=== PATIENT | female | born 1955 | race Caucasian/White ===

== ENCOUNTER 2022-07-17 08:26 | Emergency (ER) | payer MEDICARE, OTHER, SELFPAY ==
[2022-07-17 08:35] VITALS: BP 141/56; PULSE 65; RESP 16; TEMP 36.4; O2SAT 100
--- NOTE | 2022-07-17 08:39 | ED.EAR ---
HPI - Ear Problem General Chief complaint: Ear Stated complaint: rt ear pain, headache Time Seen by Provider: 07/17/22 08:39 Source: patient and RN notes reviewed Mode of arrival: ambulatory Limitations: no limitations History of Present Illness HPI Narrative: 67 y/o female with chronic tinnitus presented for c/o bilateral ear pain and headache. States right ear pain is worse than left. She endorses tinnitus is also worse than normal. She rates tinnitus 10/10. She rates the pain to the right side of her face 7.5/10. The face pain is described as achy and constant, causing the right eye to 'shrink.' Denies vision changes, photophobia, nausea, dizziness,, numbness, tingling or weakness of extremities/face, fever or chills. She endorses at the onset she felt sinus pressure in her forehead for about 1 week, stating she thinks the weather has caused the pressure. She has taken Tylenol for pain. Endorses tinnitus started in 2007 during stress, and has remained constant since then. She takes Ativan and Ambien to help her sleep due to the rain. Related Data Home Medications Medication Instructions Recorded Confirmed lorazepam 0.5 mg tablet (Ativan) 0.5 mg PO TID PRN Anxiety 10/08/19 07/17/22 zolpidem 10 mg tablet 10 mg PO DAILY 10/08/19 07/17/22 cholecalciferol (vitamin D3) 25 25 mcg PO BID 12/10/21 07/17/22 mcg (1,000 unit) capsule Allergies Allergy/AdvReac Type Severity Reaction Status Date / Time No Known Allergies Allergy Verified 07/17/22 08:36 Review of Systems Review of Systems: CONSTITUTIONAL: Denies body aches, fever, chills, or sweats. EYES: Denies visual changes, redness, or discharge. ENT: Denies rhinorrhea, congestion, sore throat CARDIOVASCULAR: Denies chest pain, palpitations, or edema. RESPIRATORY: Denies cough or dyspnea. GASTROINTESTINAL: Denies abdominal pain, nausea, vomiting, or diarrhea. SKIN: Denies rash, itching, or wounds. MUSCULOSKELETAL: Denies back pain, joint pain, or myalgia. NEUROLOGIC: Endorses headache, denies numbness, tingling, weakness, dizziness All systems reviewed & are unremarkable except as noted in HPI and below PMFSH Past Medical History Medical History External hemorrhoid, thrombosed Hepatitis C antibody test negative 10/10/17 History of anal fissures Surgical History Surgical History H/O: hysterectomy 12/28/2018 History of appendectomy 1972 History of delivery 1985 History of tubal ligation 1985 Hx of laparoscopy 1983 Family History Family History Mother Patient's mother is , Onset Age: 55 Carcinoma of colon Father Patient's father is , Onset Age: 54 Diabetes mellitus Hypertension Family history of elevated blood lipids Family history of cardiovascular disease Acute myocardial infarction Family history of coronary artery disease Sibling Diabetes mellitus Family history of alcoholism Grandparent Diabetes mellitus Social History Social History Smoking status: Never smoker Alcohol intake: never Substance use: never Lack of Transportation: No Lack of Food: Never True Current Housing: I Have Housing Concerned About Future Housing: No Difficulty Paying Gas/Electric Bills: No Difficulty Paying for Meds: No Currently Unemployed: No Education: High School Diploma/GED Difficulty w/ Childcare or Family Care: No Comments At time of signature, I have reviewed and agree with nursing past medical, surgical, social and family history unless otherwise noted. Please see nursing chart for further information. There is no relevant family history pertinent to the presenting complaint Exam Narrative: GENERAL: Well-appearing HEAD: Normocephalic, atraumatic. EYES: PER
== END 2022-07-17 09:06 | disposition home or self-care (01) ==
PROVIDERS: Emergency Provider Nurse Practitioner Family; PCP Family Medicine
DX: H93.19 Tinnitus, unspecified ear (principal); G50.0 Trigeminal neuralgia
CPT/HCPCS: 99213; G0463

== ENCOUNTER 2022-07-21 11:53 | Observation (INO) | payer MEDICARE, OTHER, SELFPAY ==
[2022-07-21] VITALS (10 sets, daily range): BP systolic 105–161; BP diastolic 41–86; PULSE 55–84; RESP 14–18; TEMP 36.2–36.7; O2SAT 96–100; BMI 21.0
--- NOTE | ~2022-07-21 | US_ITS ---
EXAMINATION: US carotid duplex BI DATE: 07/22/2022 16:14 INDICATION: Syncope TECHNIQUE: Grayscale, color Doppler, and pulsed Doppler images of the cervical carotid arteries were obtained. The degree of vessel stenosis is placed in one of the following categories: normal, <50%, 5 0-69%, >=70% but less than near-occlusion, near-occlusion, or total occlusion. Note that percent sten osis relative to normal distal artery lumen diameter is indirectly measured from velocity measurement s as described by Jitendra, et al. Radiology 2003; 229:340-346. COMPARISON: None. FINDINGS: RIGHT: The right common carotid artery (CCA) peak systolic velocity (PSV) is 79 cm/s. The right internal car otid artery (ICA) PSV is 102 cm/s. The right ICA end-diastolic velocity (EDV) is 26 cm/s. The right I CA/CCA PSV ratio is 1.3. Grayscale and color Doppler images demonstrate no evident stenosis or plaque in the ICA. The external carotid artery (ECA) PSV is 140 cm/s. There is antegrade flow in the right vertebral artery. LEFT: The left CCA PSV is 70 cm/s. The left ICA PSV is 103 cm/s. The left ICA EDV is 32 cm/s. The left ICA/ CCA PSV ratio is 1.5. Grayscale and color Doppler images yield an estimate of <50% diameter reduction from minimal plaque in the ICA. The ECA PSV is 100 cm/s. There is antegrade flow in the left vertebr al artery. IMPRESSION: 1. No evident plaque or stenosis in the right internal carotid artery. 2. <50% stenosis from minimal plaque in the left internal carotid artery. Reviewed, dictated and finalized at location A. END ARCHITECT
--- NOTE | ~2022-07-21 | CT_ITS ---
EXAMINATION: CT brain wo con INDICATION: Headache and right eye droop COMPARISON: 03/03/2017 TECHNIQUE: Standard unenhanced head CT. The dose-length product (DLP) was 605.33 mGy-cm. The mA was a djusted according to patient size. Iterative reconstruction technique was employed. FINDINGS: There is no acute intraparenchymal hemorrhage. No evidence of mass lesion. No evidence of a cute infarction. There is mild periventricular and subcortical hypodensity probably related to small vessel ischemic disease. There is mild prominence of the sulci and ventricles related to cerebral atr ophy. Intracranial calcified cerebral atherosclerosis is noted. There are no extra-axial collections. There is no mass effect or midline shift. The orbits and soft tissues are unremarkable. The visualiz ed sinuses and mastoid air cells are well aerated. IMPRESSION: 1. No acute intracranial abnormality. 2. Age related findings. Reviewed, dictated and finalized at location A. STED LIVING EXECUTIVE DIRECTOR
--- NOTE | ~2022-07-21 | XR_ITS ---
EXAMINATION: XR chest 2V DATE: 07/21/2022 16:18 INDICATION: Hypertension, syncopal episode and 2 weeks of headache TECHNIQUE: PA and lateral views of the chest were obtained. COMPARISON: Chest radiograph dated 03/19/2010 FINDINGS: Mild linear discoid atelectasis at the right upper lung zone. Small calcified nodules at the lateral left midlung zone consistent with old granulomatous disease. No other airspace opacities, pulmonary e marisela, pleural effusion or pneumothorax. The cardiomediastinal silhouette is normal. Visualized bones and soft tissues are unremarkable. IMPRESSION: 1. Mild discoid atelectasis in the right upper lung zone. No other acute cardiopulmonary disease. Reviewed, dictated and finalized at location A. ESSOR OF ARCHAEOLOGY IMPRESSION: 1. Mild discoid atelectasis in the right upper lung zone. No other acute cardio pulmonary disease.
--- NOTE | ~2022-07-21 | MR_ITS ---
EXAMINATION: MR brain/brain stem wo con DATE: 07/22/2022 12:36 INDICATION: Headache. TECHNIQUE: Magnetic resonance imaging (MRI) of the brain and brainstem was performed without intraven ous contrast. COMPARISON: Brain MRI 03/15/2017, head CT 07/21/2022 FINDINGS: There are scattered areas of nonspecific increased T2-weighted signal intensity in the cere bral white matter. There is no intracranial hemorrhage, acute infarction, or abnormal intracranial ma ss lesion. The ventricles are normal in size. The mastoid air cells are normal. The orbits are normal . The paranasal sinuses are clear. IMPRESSION: 1. Stable mild nonspecific cerebral white matter disease, which likely represents chronic small vesse l ischemic disease. Reviewed, dictated and finalized at location A. SAWMILL OPERATOR IMPRESSION: 1. Stable mild nonspecific cerebral white matter disease, which likely represen ts chronic small vessel ischemic disease.
[2022-07-21] MEDS: LORazepam INJ (*CRX) 2 MG/ML VIAL 1 MG IV PUSH (14:57)
[2022-07-21] MEDS: hydrALAZINE HCL 20 MG/ML VIAL 10 MG IV PUSH (14:58)
[2022-07-21 15:08] LABS: Basophils Absolute Auto 0.1 K/mm3 (0.0-0.1); Basophils Percent Auto 0.6 % (0.2-1.2); Eosinophils Absolute Auto 0.1 K/mm3 (0-0.3); Eosinophils Percent Auto 0.7 % (0-4.4); Hematocrit 42.7 % (37.0-47.0); Immature Granulocyte Absolute 0.03 K/mm3 (0.00-0.031); Immature Granulocyte Percent A 0.3 % (0-0.5); Lymphocytes Absolute Auto 3.48 K/mm3 (0.9-3.2); Mean Corpuscular HGB Conc 32.8 g/dl (32-36); Mean Corpuscular Hemoglobin 31.3 pg (26-34); Mean Corpuscular Volume 95.3 fl (80-100); Mean Platelet Volume 10.2 fl (7.4-10.4); Monocytes Absolute Auto 0.7 K/mm3 (0.1-0.6); Monocytes Percent Auto 6.7 % (2.6-8.5); Neutrophils Absolute Auto 5.4 K/mm3 (1.3-6.7); Neutrophils Percent Auto 55.7 % (45.5-73.1); Platelet Count Result 223 k/mm3 (150-375); Red Blood Count 4.48 M/mm3 (4.2-5.4); Red Cell Distribution Width 13.1 % (11.5-14.5); White Blood Count 9.7 K/mm3 (4.5-10.0)
[2022-07-21 15:21] LABS: Alanine Aminotransferase 17 U/L (6-35); Albumin Level 4.7 g/dL (3.5-5.1); Alkaline Phosphatase 68 U/L (38-126); Anion Gap 4 mmol/L (8-16); Aspartate Amino Transferase 27 U/L (14-36); Bilirubin,Total 0.6 mg/dL (0.2-1.3); Blood Urea Nitrogen 18 mg/dL (7-17); Carbon Dioxide 32 mmol/L (22-30); Chloride 101 mmol/L (98-107); Estimated CRCL calculation 43 ml/min; Estimated Glomerular Filt Rate > 60; Glucose 95 mg/dL (65-110); Potassium 3.9 mmol/L (3.4-5.0); Sodium 137 mmol/L (137-145)
--- NOTE | 2022-07-21 15:21 | ED.HA ---
HPI - Headache General Chief Complaint: Headache Stated Complaint: headache, HTN, eye droop since July 07 Time Seen by Provider: 07/21/22 13:48 History of Present Illness HPI Narrative: 67-year-old female with a history of trigeminal neuralgia, tinnitus, hypothyroidism presents emergency room for evaluation of a headache has been present for 2 weeks. Patient states the headache is located behind the right eye and describes it as a squeezing sensation. Headache radiates into the right temporal area. Headache is phonophobic. Denies any associated nausea or vomiting. States that headache has exacerbated her tinnitus, for which she takes Ativan for. Denies any known injury injury or trauma. Patient was seen at her primary care office earlier today and was found to have a blood pressure of 180/60. Patient also endorses drooping of her upper eyelid. Denies any focal neuro deficits. Denies fevers. Related Data Home Medications Medication Instructions Recorded Confirmed lorazepam 0.5 mg tablet (Ativan) 0.5 mg PO TID PRN Anxiety 10/08/19 07/17/22 zolpidem 10 mg tablet 10 mg PO DAILY 10/08/19 07/17/22 cholecalciferol (vitamin D3) 25 25 mcg PO BID 12/10/21 07/17/22 mcg (1,000 unit) capsule Allergies Allergy/AdvReac Type Severity Reaction Status Date / Time No Known Allergies Allergy Verified 07/21/22 11:54 Review of Systems Review of Systems: CONSTITUTIONAL: Denies fever, chills, or sweats. EYES: Denies visual changes, redness, or discharge. ENT: Denies rhinorrhea, congestion, sore throat, or otalgia. CARDIOVASCULAR: Denies chest pain, palpitations, or edema. RESPIRATORY: Denies cough or dyspnea. GASTROINTESTINAL: Denies abdominal pain, nausea, vomiting, or diarrhea. GENITOURINARY: Denies dysuria or hematuria. SKIN: Denies rash or itching. MUSCULOSKELETAL: Denies back pain, joint pain, or myalgia. NEUROLOGIC: Reports headache PSYCHIATRIC: Denies anxiety or depression. [facility] Past Medical History Medical History External hemorrhoid, thrombosed Hepatitis C antibody test negative 10/10/17 History of anal fissures Surgical History Surgical History H/O: hysterectomy 12/28/2018 History of appendectomy 1972 History of delivery 1985 History of tubal ligation 1985 Hx of laparoscopy 1983 Family History Family History Mother Patient's mother is , Onset Age: 55 Carcinoma of colon Father Patient's father is , Onset Age: 54 Diabetes mellitus Hypertension Family history of elevated blood lipids Family history of cardiovascular disease Acute myocardial infarction Family history of coronary artery disease Sibling Diabetes mellitus Family history of alcoholism Grandparent Diabetes mellitus Social History Social History Smoking status: Never smoker Alcohol intake: never Substance use: never Lack of Transportation: No Lack of Food: Never True Current Housing: I Have Housing Concerned About Future Housing: No Difficulty Paying Gas/Electric Bills: No Difficulty Paying for Meds: No Currently Unemployed: No Education: High School Diploma/GED Difficulty w/ Childcare or Family Care: No Exam Narrative: GENERAL: Well-appearing, well-nourished, no physical limitations, and in no acute distress. HEAD: Normocephalic, atraumatic. EYES: Conjunctivae normal, PERRLA and EOMI. Ptosis to left eye ENT: External nose normal, Nares clear, no rhinorrhea or epistaxis. Mucous membranes moist. Oropharynx without tonsillar hypertrophy exudate or other lesions. External ears normal, bilateral TMs normal bilaterally CHEST: Clear to auscultation. No respiratory distress. No wheezes rales or rhonchi. HEART: Regular rate and rhythm. No murmur heard.
[2022-07-21 15:54] LABS: Erythrocyte Sedimentation Rate 8 mm/hr (0-20)
--- NOTE | 2022-07-21 16:01 | ECG_ITS ---
Measurements Intervals Jet Rate: 68 P: -11 MO: 128 QRS: -42 QRSD: 88 T: 61 QT: 415 QTc: 444 Interpretive Statements SINUS RHYTHM MARKED LEFT AXIS DEVIATION [QRS AXIS < -30] POSSIBLE OLD ANTEROSEPTAL MYOCARDIAL INFARCTION , OF INDETERMINATE AGE [40+ ms Q WAVE IN V1-V4] COMPARED TO ECG 12/25/2018 13:46:05 THE RATE IS FASTER Electronically Signed On 07-21-2022 20:05:29 COLLABORATIVE PHYSICIAN by Susan Juarez M.D.
[2022-07-21] MEDS: SODIUM CHLORIDE 0.9% IV 1,000 ML 999 ML IV CONT (16:45)
[2022-07-21] MEDS: KETOROLAC 30 MG/ML VIAL (*BKC) IV PUSH (16:46)
[2022-07-21] MEDS: methylPREDNISolone SOD SUCC 125 MG VIAL IV PUSH (16:46)
[2022-07-21] MEDS: diphenhydrAMINE HCl INJ 50 MG/ML VIAL 25 MG IV PUSH (16:46)
[2022-07-21] MEDS: METOCLOPRAMIDE HCL INJ 10 MG/2 ML VIAL IV PUSH (16:47)
[2022-07-21 17:41] LABS: Influenza A QL RT-PCR Negative (Negative); Influenza B QL RT-PCR Negative (Negative); SARS-CoV-2 RNA PCR Negative
--- NOTE | 2022-07-21 21:35 | ADMGEN ---
This patient, Los Hayes, was admitted to [facility] Surg Room 317-02. Patient/family oriented to hospital policies and general routines including ID bracelet, bed and alarms, visiting hours, pain management, procedures, bathroom and other care routines, personal items, smoking policy, room service/diet, and visiting hours. Information on how to activate the Rapid Response Team has been discussed. Patient/Family are encouraged to report perceived risks to care and to ask questions if they do not understand what they are told or what they should do.
[2022-07-21] MEDS: ZOLPIDEM TARTRATE (*CRX) 5 MG TABLET 10 MG PO (23:21)
[2022-07-21] MEDS: LORazepam (*CRX) 0.5 MG TABLET PO (23:21)
[2022-07-21] MEDS: SIMVASTATIN 5 MG TABLET PO (23:22)
--- NOTE | 2022-07-21 23:22 | PM.IMHP ---
H&P: HPI History of Present Illness Date/Time: 07/21/22 23:22 Chief Complaint: headache Narrative: This is a 67-year-old female with past medical history significant for hypothyroidism, patient presented to the emergency room due to headache she was found to have abnormal a high blood pressure she had been in to see her primary care physician and instructed to come to the emergency room. patient received a dose of hydralazine and had syncopal episode. At the time of my visit patient stated that her headache was a lot better was feeling some pressure but nothing like it was before, denied any vision changes, no nausea, no vomiting, no focal sensorimotor deficit, no fevers, no rigors, no cough, no sputum production. preliminary workup was significant for: head CT IMPRESSION: 1. No acute intracranial abnormality. 2. Age related findings. chest x-ray IMPRESSION: 1. Mild discoid atelectasis in the right upper lung zone. No other acute cardiopulmonary disease Review of Systems Review of Systems: headache Constitutional: Constitutional: Denies chills, Denies fatigue, Denies fever(s), Denies malaise, Denies night sweats, Denies poor appetite and Denies weakness Eyes: Eyes: Denies change in vision ENT: Denies dysphagia, Denies vertigo and Denies dizziness Cardiovascular: Cardiovascular: Denies chest pain, Denies leg edema, Denies lightheadedness and Denies palpitations Respiratory: Respiratory: Denies chest congestion, Denies cough and Denies excessive phlegm production Gastrointestinal: Gastrointestinal: Denies abdominal pain, Denies dyspepsia, Denies heartburn, Denies nausea and Denies vomiting Genitourinary: Genitourinary: Denies dysuria Musculoskeletal: Musculoskeletal: Denies myalgias and Denies joint swelling Integumentary/Breasts: Skin/Breast: Denies rash Neurologic: Denies vertigo, Denies dizziness, Denies focal weakness and Denies Sensory deficit (Neuro) Psychiatric: Psychiatric: Reports no additional psychiatric complaints and Reports as per HPI Endocrine: Endocrine: Denies cold intolerance, Denies flushing, Denies heat intolerance, Denies polyphagia, Denies polydipsia and Denies palpitations Hematologic/Lymphatic: Hematologic/Lymphatic: Reports no additional hematologic/lymphatic complaints and Reports as per HPI Allergic/Immunologic: Allergic/Immunologic: Reports no additional allergic/immunologic complaints and Reports as per HPI [facility] Past Medical History Medical History External hemorrhoid, thrombosed Hepatitis C antibody test negative 10/10/17 History of anal fissures Surgical History Surgical History H/O: hysterectomy 12/28/2018 History of appendectomy 1972 History of delivery 1985 History of tubal ligation 1984 Hx of laparoscopy 1983 Family History Family History Mother Patient's mother is , Onset Age: 55 Carcinoma of colon Father Patient's father is , Onset Age: 54 Diabetes mellitus Hypertension Family history of elevated blood lipids Family history of cardiovascular disease Acute myocardial infarction Family history of coronary artery disease Sibling Diabetes mellitus Family history of alcoholism Grandparent Diabetes mellitus Social History Social History Smoking status: Never smoker Alcohol intake: never Substance use: never Lack of Transportation: No Lack of Food: Never True Current Housing: I Have Housing Concerned About Future Housing: No Difficulty Paying Gas/Electric Bills: No Difficulty Paying for Meds: No Currently Unemployed: No Education: High School Diploma/GED Difficulty w/ Childcare or Family Care: No Spiritual care concerns: No Meds Home Medications and Allergies
[2022-07-22] MEDS: LEVOTHYROXINE SODIUM 88 MCG TABLET PO (05:55)
[2022-07-22] MEDS: methylPREDNISolone 4 MG TABLET PO ×2 (05:55→20:52)
[2022-07-22 06:00] VITALS: BP 116/50; PULSE 63; RESP 18; TEMP 36.3; O2SAT 97
[2022-07-22 08:00] VITALS: BP 134/60; PULSE 61; RESP 20; TEMP 36.5; O2SAT 99
[2022-07-22] MEDS: LORazepam (*CRX) 0.5 MG TABLET PO (09:27)
[2022-07-22] MEDS: ACETAMINOPHEN 325 MG TABLET 650 MG PO (09:52)
[2022-07-22] MEDS: KETOROLAC 30 MG/ML VIAL (*BKC) IV PUSH (13:18)
[2022-07-22 14:00] VITALS: BP 142/54; PULSE 63; RESP 20; TEMP 36.5; O2SAT 99
--- NOTE | 2022-07-22 14:02 | PM.IMPN ---
Progress Note: A&P Assessment and Plan (1) Uncontrolled hypertension: Code(s): I10 - Essential (primary) hypertension Status: Acute Assessment and Plan: resume home meds (2) Headache: Code(s): R51.9 - Headache, unspecified Status: Acute Assessment and Plan: CT of the head with no acute abnormalities resolved follow-up in the outpatient setting Subjective Date/time seen: 07/22/22 14:02 Patient was seen during the morning rounds today. Patient headache is slightly better. No shortness of breaths chest pain. Mood stable. Review of Systems Constitutional: Constitutional: Denies chills, Denies fatigue, Denies fever(s), Denies malaise, Denies night sweats, Denies poor appetite and Denies weakness Eyes: Eyes: Denies change in vision ENT: Denies dysphagia, Denies vertigo and Denies dizziness Cardiovascular: Cardiovascular: Denies chest pain, Denies leg edema, Denies lightheadedness and Denies palpitations Respiratory: Respiratory: Denies chest congestion, Denies cough and Denies excessive phlegm production Gastrointestinal: Gastrointestinal: Denies abdominal pain, Denies dysphagia, Denies dyspepsia, Denies heartburn, Denies nausea and Denies vomiting Genitourinary: Genitourinary: Denies dysuria Musculoskeletal: Musculoskeletal: Denies myalgias and Denies joint swelling Integumentary/Breasts: Skin/Breast: Denies rash Neurologic: Denies vertigo, Denies dizziness, Denies focal weakness, Denies Sensory deficit (Neuro) and Denies weakness Psychiatric: Psychiatric: Reports no additional psychiatric complaints and Reports as per HPI Endocrine: Endocrine: Denies cold intolerance, Denies fatigue, Denies flushing, Denies heat intolerance, Denies polyphagia, Denies polydipsia and Denies palpitations Hematologic/Lymphatic: Hematologic/Lymphatic: Reports no additional hematologic/lymphatic complaints and Reports as per HPI Allergic/Immunologic: Allergic/Immunologic: Reports no additional allergic/immunologic complaints and Reports as per HPI Exam Narrative: patient laying in bed Const: General: comfortable, no acute distress, well developed, alert, awake and average body habitus Nutritional Appearance: average body habitus Orientation/consciousness: patient oriented x3 HENMT: Head: normal to inspection, normocephalic and atraumatic Ears: hearing grossly normal bilaterally Face/Nose/Sinus: normal facial exam Face and sinus: normal facial exam Eyes: General: appearance normal, both eyes and all related structures Pupils: Equal, round and reactive pupils present EOM: EOMs intact bilaterally Neck: Neck: full ROM, no lymphadenopathy and no JVD Thyroid: thyroid normal Lymphatic: no lymphadenopathy noted Resp: Effort & Inspection: normal respiratory effort and able to speak in complete sentences Auscultation: clear to auscultation bilaterally Cardio: Jugular venous distension: no JVD Rate: regular rate Rhythm: regular rhythm Heart sounds: S1 normal heart sound present and S2 normal heart sound present : General: Yes deferred Skin: Rashes: no rashes Wounds: no wounds Neuro: General: patient oriented x3 and CN's II-XI intact bilaterally Cranial nerves: Yes CN's II-XII intact bilaterally and Yes Equal, round and reactive pupils present Cognition (Neuro): normal cognition Speech: normal speech Gait exam (Neuro): Normal gait present Motor exam (neuro): 5/5 motor strength present throughout Sensory Exam: No Sensory deficit (Neuro) Extrem: General: normal to inspection, full ROM, no joint enlargement and no pedal edema Objective Data Vital Signs Vital Signs: Vital Signs - 24 hr 07/21/22 16:30 07/21/22 18:12 07/21/22 18:47 Temperature Pulse Rate 68 74 Respiratory Rate 18 16 Blood Pressure 105/71 122/84 108/41 L Pulse Oximetry 98 99 100 Oxygen Delivery 07/21/22 18:48 07/21/22 19:00 07/21/22 19:15 Temperature Pulse Rate 58 L 80 Respiratory R
--- NOTE | 2022-07-22 15:01 | WPDNEURCNPN ---
Assessment and Plan Assessment and plan (1) Uncontrolled hypertension: Code(s): I10 - Essential (primary) hypertension Status: Acute (2) Headache: Code(s): R51.9 - Headache, unspecified Status: Acute Plan 1 hypertension 2 nonspecific headache 3 syncopal episode plan is to evaluate completely before discharge MRI has been done Consult date: 07/22/22 HPI: Los Hayes is a 67 year old female admitted to the hospital for the complaints of headaches in addition to the history of 1. Trigeminal neuralgia 2. Hypothyroidism she complained of headache mainly located behind the right eye with squeezing sensation radiating to the right latter day area she also complained of tinnitus in the right ear on initial evaluation by the family physician in his office she was found to have blood pressure 180/60 but she also complained of slight ptosis of the right eye. He had been taking lorazepam 0.5 mg 3 times a day for ongoing anxiety, in the past she has history of never smoking never drinking alcohol and normal examination in the emergency room with normal vital signs except the blood pressure 161/52 on room air her routine lab in the emergency room revealed normal CBC and other lab also MRI of the brain done today revealed no evidence of space-occupying lesion or any acute territorial stroke PMFSH Past Medical History Medical History External hemorrhoid, thrombosed Hepatitis C antibody test negative 10/10/17 History of anal fissures Surgical History Surgical History H/O: hysterectomy 12/28/2018 History of appendectomy 1972 History of delivery 1985 History of tubal ligation 1985 Hx of laparoscopy 1983 Family History Family History Mother Patient's mother is , Onset Age: 55 Carcinoma of colon Father Patient's father is , Onset Age: 54 Diabetes mellitus Hypertension Family history of elevated blood lipids Family history of cardiovascular disease Acute myocardial infarction Family history of coronary artery disease Sibling Diabetes mellitus Family history of alcoholism Grandparent Diabetes mellitus Social History Social History Smoking status: Never smoker Alcohol intake: never Substance use: never Lack of Transportation: No Lack of Food: Never True Current Housing: I Have Housing Concerned About Future Housing: No Difficulty Paying Gas/Electric Bills: No Difficulty Paying for Meds: No Currently Unemployed: No Education: High School Diploma/GED Difficulty w/ Childcare or Family Care: No Spiritual care concerns: No Meds Home Medications and Allergies Home Medications Medication Instructions Recorded Confirmed Type lorazepam 0.5 mg tablet (Ativan) 0.5 mg PO TID PRN Tinnitis 10/08/19 07/21/22 History zolpidem 10 mg tablet 10 mg PO HS 10/08/19 07/21/22 History cholecalciferol (vitamin D3) 25 25 mcg PO 4XW 12/10/21 07/21/22 History mcg (1,000 unit) capsule levothyroxine 88 mcg tablet 88 mcg PO DAILY #90 tabs 06/13/22 07/21/22 Rx (Synthroid) methylprednisolone 4 mg tablets in See Rx Instructions PO .COMPLEX 07/17/22 07/21/22 Rx a dose pack (Medrol (Randolph)) #21 ea simvastatin 5 mg tablet 5 mg PO HS 07/21/22 07/21/22 History Allergies Allergy/AdvReac Type Severity Reaction Status Date / Time No Known Allergies Allergy Verified 07/21/22 11:54 Vital Signs Vital Signs - 24 hr 07/21/22 16:30 07/21/22 18:12 07/21/22 18:47 Temperature Pulse Rate 68 74 Respiratory Rate 18 16 Blood Pressure 105/71 122/84 108/41 L Pulse Oximetry 98 99 100 Oxygen Delivery 07/21/22 18:48 07/21/22 19:00 07/21/22 19:15 Temperature Pulse Rate 58 L 80 Respiratory Rate 16 16 Blood Pressure 136/84 142/86 H Pulse Oximet
[2022-07-22 16:00] VITALS: BP 142/54; PULSE 63; RESP 20; TEMP 36.5; O2SAT 99
[2022-07-22] MEDS: LORazepam (*CRX) 1 MG TABLET PO (17:57)
[2022-07-22 20:00] VITALS: BP 122/54; PULSE 57; RESP 18; TEMP 36.2; O2SAT 96
[2022-07-22] MEDS: SIMVASTATIN 5 MG TABLET PO (20:52)
[2022-07-22] MEDS: ZOLPIDEM TARTRATE (*CRX) 5 MG TABLET 10 MG PO (20:52)
[2022-07-23] VITALS: BP 156/61; PULSE 61; RESP 20; TEMP 36.2; O2SAT 100
--- NOTE | 2022-07-23 | ECHO_ITS ---
Patient Info Name: Los Hayes Age: 67 years : 1955 Gender: Female Ht: 63 in Wt: 118 lbs BSA: 1.54 m2 HR: 63 bpm BP: 155 / 59 mmHg Technical Quality: Good Exam Date: 07/23/2022 9:01 AM Exam Location: [facility] Patient Status: Outpatient Admit Date: 07/21/2022 Staff Ordering Physician: Tim Smalls MD Bridge Attacher: Christian Momin RDCS Attending Provider: Monse Remy PA-C Exam Type: CA echo doppler color flow Study Info Indications R55 - Syncope and collapse Complete two-dimensional, color flow and Doppler transthoracic echocardiogram is performed. Summary 1. Complete two-dimensional, color flow and Doppler transthoracic echocardiogram is performed. 2. Left ventricular chamber dimension is normal. 3. Left ventricular systolic function is normal, estimated at 55-60%. 4. The left ventricular diastolic function is grade III diastolic dysfunction. 5. E/e' 10 is mildly elevated. 6. Left atrial chamber dimension is mildly enlarged. 7. There is mild aortic valve sclerosis. 8. There is mild aortic valve regurgitation. 9. There is trace mitral valve regurgitation. Left Ventricle E/e' 10 is mildly elevated. Left ventricular chamber dimension is normal. Left ventricular systolic function is normal, estimated at 55-60%. The left ventricular diastolic function is grade III diastolic dysfunction. Right Ventricle Right ventricular systolic function is normal and with normal TAPSE 2.2 cm. Right ventricular chamber dimension is normal. Left Atria Left atrial chamber dimension is mildly enlarged. Right Atria Right atrial chamber dimension is normal. Aortic Valve The aortic valve is trileaflet. There is mild aortic valve sclerosis. There is no aortic valve stenosis. There is mild aortic valve regurgitation. Pulmonic Valve There is no pulmonic regurgitation. Mitral Valve There is no mitral valve stenosis. There is trace mitral valve regurgitation. Tricuspid Valve There is no tricuspid valve regurgitation. Pericardium/Pleural There is no pericardial effusion. Inferior Vena Cava Normal inferior vena cava with >50% collapse upon inspiration consistent with normal right atrial pressure, 5 mmHg. Aorta The aortic root size at the sinus of Valsalva is normal. Left Ventricular Outflow Tract Name Value Normal LVOT 2D LVOT Diameter 1.8 cm LVOT Doppler LVOT Peak Gradient 7 mmHg LVOT Mean Gradient 4 mmHg LVOT VTI 33 cm LVOT VTI/AV VTI Ratio 0.8 LVOT Stroke Volume 83 ml LVOT CO 4.8 l/min LVOT CI 3.1 l/min/m2 Mitral Valve Name Value Normal MV Doppler MV Peak Gradient 4 mmHg
[2022-07-23] MEDS: LORazepam (*CRX) 1 MG TABLET PO ×2 (00:10→11:49)
[2022-07-23] MEDS: ACETAMINOPHEN 325 MG TABLET 650 MG PO (03:51)
[2022-07-23 06:00] VITALS: BP 155/59; PULSE 54; RESP 18; TEMP 36.3; O2SAT 99
[2022-07-23] MEDS: LEVOTHYROXINE SODIUM 88 MCG TABLET PO (06:02)
--- NOTE | 2022-07-23 10:18 | PM.DS ---
DS: Admitting Diagnosis Discharge Date 07/23/2022 Admitting Diagnosis Headache DS: Discharge Diagnosis Discharge Diagnosis (1) Uncontrolled hypertension: Code(s): I10 - Essential (primary) hypertension Status: Acute Assessment and Plan: resume home meds (2) Headache: Code(s): R51.9 - Headache, unspecified Status: Acute Assessment and Plan: CT of the head with no acute abnormalities resolved follow-up in the outpatient setting DS: Summary Hospital Course Reason for hospitalization: Headache Hospital Course: 67 years old female was admitted complains of having hypertension and headache. Patient blood pressure was controlled and headache medications were given. Patient MRI was negative. Patient carotid Doppler was negative. Neurology was consulted. No new medication was started. Today patient is feeling better so patient discharged home stable condition. Patient echo report will be followed as an outpatient Status at Discharge Cognitive/behavioral status at discharge: Stable Time Spent with Patient Time attestation: Total time spent providing and/or coordinating discharge services: Exam Narrative: patient laying in bed Const: General: comfortable, no acute distress, well developed, alert, awake and average body habitus Nutritional Appearance: average body habitus Orientation/consciousness: patient oriented x3 HENMT: Head: normal to inspection, normocephalic and atraumatic Ears: hearing grossly normal bilaterally Face/Nose/Sinus: normal facial exam Face and sinus: normal facial exam Eyes: General: appearance normal, both eyes and all related structures Pupils: Equal, round and reactive pupils present EOM: EOMs intact bilaterally Neck: Neck: full ROM, no lymphadenopathy and no JVD Thyroid: thyroid normal Lymphatic: no lymphadenopathy noted Resp: Effort & Inspection: normal respiratory effort and able to speak in complete sentences Auscultation: clear to auscultation bilaterally Cardio: Jugular venous distension: no JVD Rate: regular rate Rhythm: regular rhythm Heart sounds: S1 normal heart sound present and S2 normal heart sound present : General: Yes deferred Skin: Rashes: no rashes Wounds: no wounds Neuro: General: patient oriented x3 and CN's II-XI intact bilaterally Cranial nerves: Yes CN's II-XII intact bilaterally and Yes Equal, round and reactive pupils present Cognition (Neuro): normal cognition Speech: normal speech Gait exam (Neuro): Normal gait present Motor exam (neuro): 5/5 motor strength present throughout Sensory Exam: No Sensory deficit (Neuro) Extrem: General: normal to inspection, full ROM, no joint enlargement and no pedal edema Discharge Plan Discharge Attending physician on discharge: Bg Anaya Consulting providers: Tim Smalls Discharging Clinician: Bg Anaya Patient Disposition: Home, Self-Care Activity: as tolerated Diet: as tolerated and heart healthy Patient Instructions: Antibiotic Form Stand Alone Forms: General Discharge Information Follow-up/Referrals: Tim Smalls MD [Physician] - Jessica Campos DO [Primary Care Provider] - Discharge Medications: Continued methylprednisolone [Medrol (Randolph)] 4 mg tablets,dose pack See Rx Instructions .ROUTE .COMPLEX Qty: 21 0RF Rx Instructions: daily until 07/23/22 cholecalciferol (vitamin D3) 25 mcg (1,000 unit) capsule 25 mcg PO 4XW zolpidem 10 mg tablet 10 mg PO HS lorazepam [Ativan] 0.5 mg tablet 0.5 mg PO TID PRN (Reason: Tinnitis) levothyroxine [Synthroid] 88 mcg tablet 88 mcg PO DAILY Qty: 90 1RF simvastatin 5 mg tablet 5 mg PO HS Date of admission: 07/21/22 17:06 Primary Care Provider: Jessica Campos Admitting Provider: Pool Merida Attending physician on admission: Monse Remy Condition: Stable
[2022-07-23 11:40] VITALS: BP 124/77; PULSE 66; RESP 18; TEMP 36.4; O2SAT 97
== END 2022-07-23 12:05 | disposition home or self-care (01) ==
LOC: ANHED 17:05 → ANH3MEDSUR 21:19
PROVIDERS: Admitting Provider Internal Medicine; Emergency Provider Nurse Practitioner Family; PCP Family Medicine; Visit Provider Physician Assistant
DX: R55 Syncope and collapse (principal); R51.9 Headache, unspecified; I10 Essential (primary) hypertension; R90.82 White matter disease, unspecified; Z20.822 Contact with and (suspected) exposure to COVID-19; H02.401 Unspecified ptosis of right eyelid; I44.4 Left anterior fascicular block; G50.0 Trigeminal neuralgia; E03.9 Hypothyroidism, unspecified; J98.11 Atelectasis; I35.2 Nonrheumatic aortic (valve) stenosis with insufficiency; H93.19 Tinnitus, unspecified ear; Z79.52 Long term (current) use of systemic steroids; Z79.899 Other long term (current) drug therapy
CPT/HCPCS: 36415; 70450; 70551; 71046; 80053; 85025; 85652; 87636; 93005; 93306; 93880; 96361; 96374; 96375; 99285; A9270; G0378; J0360; J1200; J1885; J2060; J2765; J2930; J7030